=== PATIENT | female | born 1950 | race Caucasian/White ===

== ENCOUNTER 2025-08-19 01:15 | Emergency (ER) | payer MEDICARE, BC ==
[~2025-08-19] VITALS: Ht 175.3 cm; Wt 64.4 kg
[2025-08-19] MEDS ORDERED: hydrALAZINE HCL IV 20 MG VIAL ONE (02:13)
[2025-08-19 02:16] LABS: PLATELET COUNT (AUTO) 214 K/uL (150-450); RED BLOOD CELL COUNT(AUTO) 4.70 MIL/uL (4.0-5.2); RED CELL DISTRIBUTION WIDTH 14.1 % (11.5-15.0); WHITE BLOOD COUNT (AUTO) 7.7 K/uL (4.3-11.0)
[2025-08-19] MEDS: hydrALAZINE HCL IV 20 MG VIAL IV ONE (02:17)
[2025-08-19 02:22] LABS: CALCIUM, SERUM 9.3 mg/dL (8.5-10.1); CREATININE 0.8 mg/dL (0.6-1.3); SODIUM SERUM 135.0 mmol/L (136-145); UREA NITROGEN, BLOOD 18.0 mg/dL (7-18)
[2025-08-19] MEDS ORDERED: HYDR-4075 PO (02:51)
[2025-08-19 03:04] VITALS: BP 169/77; TEMP 97.9; O2SAT 99
== END 2025-08-19 03:06 | disposition home or self-care (01) ==
LOC: ER 01:32
DX: I10 Essential (primary) hypertension (principal); Z96.649 Presence of unspecified artificial hip joint
CPT/HCPCS: 99284; 96374; 93005; 85025; 80048; 36415; 84484; J0360